=== PATIENT | male | born 1945 | race Caucasian/White ===

== ENCOUNTER 2019-01-26 09:20 | Emergency (ER) | payer OTHER, SELFPAY ==
[2019-01-26 09:30] VITALS: BP 138/74; PULSE 94; RESP 16; TEMP 36.8; O2SAT 96
--- NOTE | 2019-01-26 10:25 | W.ED.GENAD ---
Discharge Plan Disposition Patient Disposition: HOME Condition: Good Discharge Details Chief Complaint: RashLesion Clinical Impression: Tick bite Primary Care Provider: Mary Reis ED Provider: Page Hood Home Meds and New Rx's Prescriptions: Continued glyburide 5 MG tablet 5 mg PO BID RF: 0 lisinopril 20 MG tablet 20 mg PO DAILY RF: 0 aspirin [Ecotrin Low Strength] 81 MG tablet,delayed release (DR/EC) 81 mg PO DAILY RF: 0 citalopram 20 MG tablet 20 mg PO DAILY RF: 0 Janumet 1 EACH tablet 1 ea PO BID RF: 0 Jardiance 25 MG tablet 25 mg PO DAILY RF: 0 acetaminophen [Tylenol] 325 MG tablet 650 mg PO Q6H PRN PRNQty: 60 RF: 0 Discharge Instructions Instructions: Tick Bite (ED) Additional Instructions: Continue to monitor area for signs of infection including redness, warmth, drainage, increased pain, fevers/chills. If you develop this or bulls eye rash please seek care urgently once again. The timeline that you have described is more consistent with reaction from the bite of the tick rather than tick born illness. Keep your appointment with primary care next week and discuss further with them at that time. Referrals: Mary Reis [Primary Care Provider] - Medical Decision Making Patient 71-year-old male presenting today with concern for a bull's-eye rash on the left side of his back. He reports that he was bit by 3 to 4 days ago by a tick. It was not engorged at the time of removal but it is unclear when he may have been bitten. 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 He reports that since the onset of his symptoms, the rash is largely resolved. Area of erythema was noted shortly after tick removal. He was unable to visualize but reports that his described bull's-eye rash. Max was 1 inch in diameter on patient's physical demonstration. At this time, patient has a 5 mm area of pink on the left side of his back where the tick had been located. Patient is clinically asymptomatic. He does appear anxious and is very anxious regarding his medical history. He is afebrile. Appears well. He denies any manifestations at this time, is feeling quite well. The time when the patient is describing is more consistent with exposure to tick with localized reaction to the bite rather than bull's-eye rash itself. His symptoms began shortly after its removal and resolved quite quickly. Patient was seen by his primary care as well as [facility] emergency department. He has an appointment with primary care next week. Patient I discussed erythema migrans in depth as well as the typical timeline in which this occurs. we discussed risk/benefit of prophylactic course of doxycycline and will hold off at this time. All of his questions and concerns were addressed and he is in agreement with this plan. HPI General Mode of arrival: ambulatory. Date/Time Provider Initiated Documentation: 01/26/19 09:58. Limitations to Documentation: no limitations. Information obtained by: patient and RN notes reviewed. History of Present Illness 73 year old M presents to the emergency department with the chief complaint of Tick bite, described as mild, Patient started experiencing this day(s) (3-4) and it has been now resolved (Area of redness greatly improved). No relieving factors improve symptom(s), No exacerbating factors reported . Patient notes no other symptoms.. Patient did receive the following treatments prior to arrival, none Related Data Home Medications Medication Instructions Recorded Confirmed Janumet 1 ea PO BID 01/19/17 01/26/19 Jardiance 25 mg PO DAILY 01/19/17 01/26/19 aspirin [Ecotrin Low Strength] 81 mg PO DAILY 01/19/17 01/26/19 citalopram 20 mg PO DAILY 01/19/17 01/26/19 glyburide 5 mg PO BID 01/19/17 01/26/19 lisinopril 20 mg PO DAILY 01/19/17 01/26/19 acetaminophen [Tylenol] 650 mg PO Q6H PRN PRN #60 tab 01/22/17 01/26/19 Previous Rx's Medication Instructions Recorded acetaminophen [Tylenol] 650 mg PO Q6H PRN PRN #60 tab 01/22/17 Allergies Allergy/AdvReac Type Severity Reaction Status Date / Time Sulfa (Sulfonamide Allergy Skin Rash Unverified 01/26/19 09:41 Antibiotics) General Stated Complaint: RashLesion JAMIR: 4 Review of Systems Constitutional Reports as per HPI, Denies chills and Denies fever(s) Cardiovascular Denies chest pain and Denies dyspnea Respiratory Denies cough and Denies dyspnea Musculoskeletal Reports as per HPI, Denies abnormal gait, Denies back pain, Denies myalgias, Denies arthralgias and Denies joint swelling Integumentary/Breasts Reports as per HPI Neurologic Reports as per HPI, Denies abnormal gait, Denies sensory deficit and Denies paresthesias [facility] Social History Smoking/Tobacco Use Status: Former Tobacco Use Alcohol Intake: current Alcohol Intake frequency: holidays/special occasions only Drug use: Never Substance use type: does not use Do you feel safe at home: Yes Do you feel safe in your relationship?: Yes Exam Const General: cooperative, healthy appearing, comfortable, no acute distress and well developed Nutritional Appearance: well nourished and overweight Orientation: alert and awake Resp Effort & Inspection: normal respiratory effort, able to speak in complete sentences and no respiratory distress Cardio Rate: regular rate Rhythm: regular rhythm Skin General skin exam: erythema (5 mm in diameter area of erythema left side of back), no fluctuance, no hypertrophy and no induration Neuro General: alert and awake Cognition: normal cognition Speech: speech normal Gait: normal gait Sensory Exam: no sensory deficits noted Psych Appearance: grossly normal and well kempt Mental Status: mental status grossly normal Speech and Movement: speech and movement normal Course Vital Signs Temperature 36.8 C 01/26/19 09:30 Pulse 94 H 01/26/19 09:30 Respiratory Rate 16 01/26/19 09:30 Blood Pressure 138/74 01/26/19 09:30 Pulse Oximetry 96 01/26/19 09:30 Temperature 36.8 C 01/26/19 09:30 Temperature Source Tympanic 01/26/19 09:30 Pulse 94 H 01/26/19 09:30 Respiratory Rate 16 01/26/19 09:30 Respiratory Effort Non-Labored 01/26/19 09:37 Blood Pressure 138/74 01/26/19 09:30 Blood Pressure Position Sitting 01/26/19 09:30 Pulse Oximetry 96 01/26/19 09:30 Oxygen Delivery Method Room Air 01/26/19 09:30 Oxygen Flow Rate 0 01/26/19 09:30 Pain Level 0 01/26/19 09:30
--- NOTE | 2019-01-26 10:28 | ED.GENADUL_ITS ---
Discharge Plan Disposition Patient Disposition: HOME Condition: Good Discharge Details Chief Complaint: RashLesion Clinical Impression: Tick bite Primary Care Provider: Mary Reis ED Provider: Page Hood Home Meds and New Rx's Prescriptions: Continued glyburide 5 MG tablet 5 mg PO BID RF: 0 lisinopril 20 MG tablet 20 mg PO DAILY RF: 0 aspirin [Ecotrin Low Strength] 81 MG tablet,delayed release (DR/EC) 81 mg PO DAILY RF: 0 citalopram 20 MG tablet 20 mg PO DAILY RF: 0 Janumet 1 EACH tablet 1 ea PO BID RF: 0 Jardiance 25 MG tablet 25 mg PO DAILY RF: 0 acetaminophen [Tylenol] 325 MG tablet 650 mg PO Q6H PRN PRNQty: 60 RF: 0 Discharge Instructions Instructions: Tick Bite (ED) Additional Instructions: Continue to monitor area for signs of infection including redness, warmth, drainage, increased pain, fevers/chills. If you develop this or bulls eye rash please seek care urgently once again. The timeline that you have described is more consistent with reaction from the bite of the tick rather than tick born illness. Keep your appointment with primary care next week and discuss further with them at that time. Referrals: Mary Reis [Primary Care Provider] - Medical Decision Making Patient 71-year-old male presenting today with concern for a bull's-eye rash on the left side of his back. He reports that he was bit by 3 to 4 days ago by a tick. It was not engorged at the time of removal but it is unclear when he may have been bitten. 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 He reports that since the onset of his symptoms, the rash is largely resolved. Area of erythema was noted shortly after tick removal. He was unable to visualize but reports that his described bull's- eye rash. Max was 1 inch in diameter on patient's physical demonstration. At this time, patient has a 5 mm area of pink on the left side of his back where the tick had been located. Patient is clinically asymptomatic. He does appear anxious and is very anxious regarding his medical history. He is afebrile. Appears well. He denies any manifestations at this time, is feeling quite well. The time when the patient is describing is more consistent with exposure to tick with localized reaction to the bite rather than bull's-eye rash itself. His symptoms began shortly after its removal and resolved quite quickly. Patient was seen by his primary care as well as [facility] emergency department. He has an appointment with primary care next week. Patient I discussed erythema migrans in depth as well as the typical timeline in which this occurs. we discussed risk/benefit of prophylactic course of doxycycline and will hold off at this time. All of his questions and concerns were addressed and he is in agreement with this plan. HPI General Mode of arrival: ambulatory . Date/Time Provider Initiated Documentation: 01/26/19 09:58 . Limitations to Documentation: no limitations . Information obtained by: patient and RN notes reviewed . History of Present Illness 73 year old M presents to the emergency department with the chief complaint of Tick bite, described as mild, Patient started experiencing this day(s) (3-4) and it has been now resolved (Area of redness greatly improved). No relieving factors improve symptom(s), No exacerbating factors reported . Patient notes no other symptoms.. Patient did receive the following treatments prior to arrival, none Related Data Home Medications Medication Instructions Recorded Confirmed Janumet 1 ea PO BID 01/19/17 01/26/19 Jardiance 25 mg PO DAILY 01/19/17 01/26/19 aspirin [Ecotrin Low Strength] 81 mg PO DAILY 01/19/17 01/26/19 citalopram 20 mg PO DAILY 01/19/17 01/26/19 glyburide 5 mg PO BID 01/19/17 01/26/19 lisinopril 20 mg PO DAILY 01/19/17 01/26/19 acetaminophen [Tylenol] 650 mg PO Q6H PRN PRN #60 tab 01/22/17 01/26/19 Previous Rx's Medication Instructions Recorded acetaminophen [Tylenol] 650 mg PO Q6H PRN PRN #60 tab 01/22/17 Allergies Allergy/AdvReac Type Severity Reaction Status Date / Time Sulfa (Sulfonamide Allergy Skin Rash Unverified 01/26/19 09:41 Antibiotics) General Stated Complaint: RashLesion JAMIR: 4 Review of Systems Constitutional Reports as per HPI, Denies chills and Denies fever(s) Cardiovascular Denies chest pain and Denies dyspnea Respiratory Denies cough and Denies dyspnea Musculoskeletal Reports as per HPI, Denies abnormal gait, Denies back pain, Denies myalgias, Denies arthralgias and Denies joint swelling Integumentary/Breasts Reports as per HPI Neurologic Reports as per HPI, Denies abnormal gait, Denies sensory deficit and Denies paresthesias [facility] Social History Smoking/Tobacco Use Status: Former Tobacco Use Alcohol Intake: current Alcohol Intake frequency: holidays/special occasions only Drug use: Never Substance use type: does not use Do you feel safe at home: Yes Do you feel safe in your relationship?: Yes Exam Const General: cooperative, healthy appearing, comfortable, no acute distress and well developed Nutritional Appearance: well nourished and overweight Orientation: alert and awake Resp Effort & Inspection: normal respiratory effort, able to speak in complete sentences and no respiratory distress Cardio Rate: regular rate Rhythm: regular rhythm Skin General skin exam: erythema (5 mm in diameter area of erythema left side of back), no fluctuance, no hypertrophy and no induration Neuro General: alert and awake Cognition: normal cognition Speech: speech normal Gait: normal gait Sensory Exam: no sensory deficits noted Psych Appearance: grossly normal and well kempt Mental Status: mental status grossly normal Speech and Movement: speech and movement normal Course Vital Signs Temperature 36.8 C 01/26/19 09:30 Pulse 94 H 01/26/19 09:30 Respiratory Rate 16 01/26/19 09:30 Blood Pressure 138/74 01/26/19 09:30 Pulse Oximetry 96 01/26/19 09:30 Temperature 36.8 C 01/26/19 09:30 Temperature Source Tympanic 01/26/19 09:30 Pulse 94 H 01/26/19 09:30 Respiratory Rate 16 01/26/19 09:30 Respiratory Effort Non-Labored 01/26/19 09:37 Blood Pressure 138/74 01/26/19 09:30 Blood Pressure Position Sitting 01/26/19 09:30 Pulse Oximetry 96 01/26/19 09:30 Oxygen Delivery Method Room Air 01/26/19 09:30 Oxygen Flow Rate 0 01/26/19 09:30 Pain Level 0 01/26/19 09:30
== END 2019-01-26 10:39 | disposition home or self-care (01) ==
LOC: ER 10:42
PROVIDERS: Emergency Provider Physician Assistant; PCP General Practice
DX: S30.860A Insect bite (nonvenomous) of lower back and pelvis, initial encounter (principal); W57.XXXA Bitten or stung by nonvenomous insect and other nonvenomous arthropods, initial encounter
CPT/HCPCS: 99282